=== PATIENT | female | born 1955 | race Caucasian/White ===

== ENCOUNTER → 2016-07-20 | Outpatient (CLI) | payer BC ==
[~2016-07-20] MED LIST: ATIVAN1 MG PO; BUSPAR10 MG PO; DESVENLAFAXINE50 M1 PO; DEXTROAMP-AMPHE30 MG PO; FLEXERIL10 MG PO; GLUCOPHAGE XR500 MG PO; IMITREX100 MG PO; INDERAL10 MG PO; NORCO 325-5 MG1 TAB PO; RESTASIS1 EACH EYEBOTH; SENNA-S TABLET1 EACH PO; SYNTHROID75 MCG PO; TRAZODONE HCL100 MG PO; VOLTAREN25 MG PO; VYVANSE70 MG PO; WELLBUTRIN XL150 MG PO
== END | disposition short-term general hospital (02) ==
LOC: CLNEUR 10:55 → CLORTH 14:20 → CLNEUR 14:30
DX: M43.16 Spondylolisthesis, lumbar region (principal); M48.06 Spinal stenosis, lumbar region; I73.9 Peripheral vascular disease, unspecified; M47.896 Other spondylosis, lumbar region

== ENCOUNTER → 2016-10-19 | Outpatient (CLI) | payer BC | END | disposition short-term general hospital (02) | LOC: CLNEUR 09:53 | DX: M54.9 Dorsalgia, unspecified (principal); G89.29 Other chronic pain; M43.16 Spondylolisthesis, lumbar region; Z98.1 Arthrodesis status ==